=== PATIENT | male | born 1990 | race Caucasian/White ===

== ENCOUNTER 2017-05-17 10:06 | Emergency (ER) | payer MEDICAID ==
[~2017-05-17] VITALS: Ht 172.7 cm; Wt 68.0 kg
[~2017-05-17 10:06] MED LIST: CEPHALEXIN500 M1 PO; PULMICORT90 MCG/ACT IH
[2017-05-17 10:32] LABS: HEMOGLOBIN 14.1 g/dL (14.1-18.0); LYMPH # 1.8 K/mm3 (0.7-4.5); LYMPH % 19.8 % (10-50)
--- NOTE | 2017-05-17 11:17 | RADIOLOGY REPORT PS360 ---
CT ABD PELVIS W/O CONTRAST CLINICAL INDICATION: Abdominal pain with vomiting ABDOMINAL PAIN ORDERING PHYSICIAN: Pop Valenzuela MD PATIENT AGE: 26 years COMPARISON: None TECHNIQUE: Axial images obtained with sagittal and coronal reformats. PROCEDURE: Oral Contrast: None IV Contrast: 75 mL's Isovue-[id number]. FINDINGS: Lung bases are clear. The liver, gallbladder, spleen, adrenal glands, and pancreas have an unremarkable unenhanced CT appearance. No renal calculi, ureteral calculi, hydronephrosis, unremarkable. Urinary bladder. No intestinal obstruction or free air. The appendix is not well delineated however, there are no secondary signs of appendicitis. If symptoms relate to the appendix and repeat exam with oral contrast may be of further value for better appendiceal delineation. No focal inflammatory changes apparent. There are multiple unopacified bowel loops present within the abdomen/pelvis which could obscure or mimic pathology. If symptoms persists, consider repeating exam with oral contrast administration. Mild degenerative changes are present in the lower thoracic spine. IMPRESSION: 1. No definite acute finding. 2. There are multiple unopacified bowel loops present within the abdomen/pelvis which could obscure or mimic pathology. . The appendix is not well delineated. If symptoms persists, consider repeating exam with oral contrast administration
--- NOTE | 2017-05-17 12:09 | Emergency Room Report ---
History of Present Illness Time Seen by [id number] Presenting Problem in Triage Pt arrived:Walked Presenting Problem:H/A FOR 3 DAYS AND VOMITING STARTED EARLY YESTERDAY AM, ABD PAIN. Onset of symptoms date/time:/ or onset unknown for:MEDICAL HX UNKNOWN Treatment Prior to Arrival: ATTENDING PSYCHIATRIST Provided by: Sepsis Risk Assessment: Temp: 98.5 B/P: 97/55 MAP: 84 Pulse: 79 Resp: 14 Recent fever? Y Clinical Suspician of Infection? N Mental Status: 1 - Regular (Normal Baseline) Sepsis Risk:Low Sepsis Risk Have you (or family members/close friends) recently traveled outside the [place]? N If Yes, where/when: Have you had exposure to infectious disease within the past month? TB? Other? Specify: Source patient, RN notes reviewed, family, RN/MD Exam Limitations no limitations Comment This is a 26-year-old male patient presented emergency room with severe abdominal pain, intractable nausea, and vomiting, unable to hold anything down, for the past 3 days. Patient has been experiencing chills, subjective fever, night sweats. Patient has any recent travel or exposure to sick contacts. When specifically asked about drug use or drug abuse the patient denied use of any illicit/street drugs. ALLERGIES Coded Allergies: Penicillins (11/21/15) Home Medications Reported Medications No Known Home Medications History Medical History General CAD? No Angina: No ID: No Hypertension? No Hyperlipidemia? No CHF? No DVT? No PE? No COPD? No Asthma? No Anemia? No GERD? No Gastric ulcers? No GI Bleed? No Hernia? No Thyroid Problems? No Hypothyroidism? No CVA? No Seizures? No Diabetes? No Renal Insuffiency? No End Stage Renal Disease? No UTI? No Stones? No BPH? No GB Disease: No Nephritic Syndrome? No Asplenia? No Hepatitis? No Sickle Cell Disease? No Arthritis? No Migraines? No Cataracts? No Glaucoma? No MRSA? No HIV? No TB? No Anxiety? No Depression? No Cancer? No Immunization Hx DT/Tetanus Unknown Surgical Hx Previous Surgery?Y APPENDECTOMY Social History Smoking Hx Smoker: Current Every Day Smoker Tobacco: Yes Type Cigarettes Packs/day < 1 Pack Alcohol Alcohol: No Review of Systems All Other Systems Reviewed and Negative Constitutional see HPI, chills, diaphoresis, fever (subjective) Gastrointestinal see HPI, abdominal pain, denies diarrhea, nausea, vomiting Physical Exam Vital Signs Vital Signs Date Time Temp Pulse Resp B/P Pulse O2 O2 Flow FiO2 Ox Delivery Rate 05/17 1224 98.5 79 14 97/55 99 05/17 1107 79 14 9755 99 05/17 1032 18 05/17 1015 98.5 79 18 132/60 99 General Appearance normal appearance, WD/WN, moderate distress, anxious, in distress Respiratory Status Yes: trachea midline, chest symmetrical, non tender chest. No: respiratory distress. Lung Sounds bilateral: normal breath sounds, lungs clear. Cardiovascular normal exam, regular rate/rhythm, no peripheral edema, no gallop, no JVD, no murmur, no rub, normal peripheral pulses Gastrointestinal normal bowel sounds, soft, no organomegaly, tenderness ( diffusely tender) Extremities non-tender, normal range of motion, normal inspection Neurologic alert, normal exam, oriented x 3, anxious Mental status normal mood/affect Skin intact, normal color, warm/dry Medical Decision Making LABS/Meds/Orders Pt receiving controlled substance in ED? No Comment Asked to give a urine sample multiple times, with the patient stating that he is unable to give one, at this time. At 12:05pm-prior to giving the urine sample, as stated above, the patient advised that he is leaving. Aware of the implications of leaving AGAINST MEDICAL ADVICE, signed the AMA paperwork. The gallbladder ultrasound was not performed due to the patient's leaving AMA. Suspect drug abuse, with potential drug withdrawal features based on patient' s refusal to give a urine drug screen. Results/Orders Laboratory Tests 05/17/17 1020: Sodium 137, Potassium 3.5, Chloride 99, Carbon Dioxide 27, BUN 12, Creatinine 1.0, Estimated Creat Clear 109, Estimated GFR (MDRD) 91, Glucose 120 H, Calcium 8.8, Total Bilirubin 0.6, AST 17, ALT 19, Alkaline Phosphatase 71, Total Protein 7.9, Albumin 4.5, Globulin 3.4 H, Albumin/Globulin Ratio 1.3, Amylase 68, Lipase 157, WBC 8.9, RBC 4.63, Hgb 14.1, Hct 40.7 L, MCV 87.9, RDW 12.6, Plt Count 188, MPV 7.6, Gran % 73.9, Gran # 6.6, Lymphocytes % 19.8, Monocytes % 5.7 , Eosinophils % 0.3, Basophils % 0.3, Lymphocytes # 1.8, Monocytes # 0.5, Eosinophils # 0.0, Basophils # 0.0, PUBS MCHC 34.7, MCH 30.5, Alcohols 0 Current Medication Orders Sig/Bridgette Start time Last Medication Dose Route Stop Time Status Admin Sodium Chloride 1,000 ML .STK-MED ONE 05/17 1133 DC IV Sodium Chloride 1,000 ML .Q1H1M 05/17 1130 DCD 05/17 IV 05/17 1230 1136 Sodium Chloride 10 ML PRN PRN 05/17 1130 DCD IV 05/18 1120 Ketorolac 30 MG ONCE ONE 05/17 1030 DC 05/17 Tromethamine IV 05/17 1031 1032 Ondansetron HCl 4 MG ONCE ONE 05/17 1030 DC 05/17 IV 05/17 1031 1032 Ketorolac 0 .STK-MED ONE 05/17 1029 DC Tromethamine .ROUTE Ondansetron HCl 0 .STK-MED ONE 05/17 1029 DC .ROUTE Sodium Chloride 1,000 ML .Q1H1M 05/17 1015 DC 05/17 IV 05/17 1115 1025 Sodium Chloride 10 ML PRN PRN 05/17 1015 DCD IV 05/18 1014 Sodium Chloride 10 ML PRN PRN 05/17 1015 DCD IV 05/18 1014 Orders Procedure Date/time Status DIET-NOTHING BY MOUTH 05/17 L Active ALCOHOL 05/[address] ABD/PELVIS REQ 05/17 1015 Complete IV SALINE LOCK 05/17 1015 Active URINALYSIS/COMPLETE 05/17 1015 Active LIPASE 05/17 1015 Complete DRUG ABUSE SCREEN (10) 05/17 1015 Active CBC WITH AUTO DIFF 05/17 1015 Complete CHEM 12 PROFILE 05/17 1015 Complete AMYLASE 05/17 1015 Complete XRAY/CT/US XRAY/CT/US CT abdomen, pelvis CT interpretation by discussed w/radiologist CT Results abnormal Comment See radiologist's report Departure Departure Time of Disposition 1208 Disposition Against Medical Advice Clinical Impression Primary Impression: Nausea and vomiting Qualifiers: Vomiting type: unspecified Vomiting Intractability: unspecified Qualified Code: R11.2 - Nausea with vomiting, unspecified Condition STABLE Referrals NADIA BLOOM (Family): Today after leaving ER Prescriptions Current Visit Scripts No Known Home Medications ED Critical Care Critical Care No at 4615
[2017-05-17 12:24] VITALS: BP 97/55
== END 2017-05-17 12:25 | disposition left against medical advice (07) ==
LOC: ER 10:06
PROVIDERS: Emergency Medicine
DX: R11.2 Nausea with vomiting, unspecified (principal); Z53.21 Procedure and treatment not carried out due to patient leaving prior to being seen by health care provider; Z88.0 Allergy status to penicillin; F17.210 Nicotine dependence, cigarettes, uncomplicated
CPT/HCPCS: J2405